=== PATIENT | male | born 1950 | race Caucasian/White ===

== ENCOUNTER 2020-10-16 16:02 | Observation (INO) ==
[2020-10-16] MEDS ORDERED: THIAMINE 200 MG/2 ML VIAL IV STA (17:00)
[2020-10-16] MEDS ORDERED: SODIUM CHLORIDE 0.9% 1,000 ML IV STA (17:00)
[2020-10-16 18:26] LABS: Basophils # 0.1 10*3/uL (0.0-0.2); Basophils % 1.5 % (0.0-0.8); Eosinophils # 0.2 10*3/uL (0.0-0.87); Eosinophils % 2.8 % (0.00-10.9); Hematocrit 49.2 VOL% (42.0-52.0); Hemoglobin 16.1 GM/DL (14.0-18.0); Immature Granulocytes % 0.4 %; Immature Granulocytes Absolute 0.03 #; Lymphocytes % 40.2 % (21.2-54.2); Mean Corpuscular HGB Conc 32.7 GM/DL (32-36); Mean Platelet Volume 9.2 FL (9.6-12.0); Monocytes % 5.7 % (1.7-12.7); Neutrophils % 49.4 % (38.7-73.9); Platelet Count 220 T/CUMM (130-400); Red Blood Count 4.73 MC/CUMM (3.8-5.5); Red Cell Distribution Width 13.6 % (9.3-17.3); White Blood Count 7.5 T/CUMM (4-12)
[2020-10-16 18:47] LABS: Lactic Acid 3.1 MMOL/L (0.4-2.0)
[2020-10-16 18:49] LABS: Alanine Aminotransferase 31 U/L (16-61); Albumin 3.1 G/DL (3.4-5.0); Alkaline Phosphatase 139 U/L (45-117); Aspartate Amino Transferase 76 U/L (0-37); Blood Urea Nitrogen 11 MG/DL (7-18); Calcium 8.5 MG/DL (8.5-10.1); Carbon Dioxide 22 MMOL/L (21-32); Estimated Glom Filtration Rate 124 ML/MIN; Glucose 113 MG/DL (74-106); Osmolality,Calculated 276.5 MOS/KG (273-304); Potassium 3.7 MMOL/L (3.5-5.1); Sodium 139 MMOL/L (136-145)
[2020-10-16 18:52] LABS: Thyroid Stimulating Hormone 1.82 uIU/ml (0.358-3.74)
[2020-10-16] MEDS ORDERED: THIAMINE INJ 100 MG, FOLIC ACID INJ 1 MG, MAGNESIUM SULF INJ 2 GM, MULTIVITAMIN INJ 10 ... IV SCH (19:00)
[2020-10-16 19:11] LABS: Barbiturates Screen,Urine Negative (Negative); Benzodiazepines Screen,Urine Negative (Negative); Cannabinoid Screen,Urine Negative (Negative); Opiate Screen,Urine Negative (Negative); Phencyclidine Screen,Urine Negative (Negative)
[2020-10-16] MEDS ORDERED: ONDANSETRON 4 MG/2 ML VIAL IV PRN (19:13)
[2020-10-16] MEDS ORDERED: GLUCAGON 1 MG VIAL IM PRN (19:13)
[2020-10-16] MEDS ORDERED: DEXTROSE 50% 25 GM/50 ML VIAL IV PRN (19:13)
[2020-10-16] MEDS ORDERED: ENOXAPARIN 40 MG/0.4 ML SYRINGE SUBCUT SCH (19:30)
[2020-10-17 02:21] LABS: Basophils # 0.1 10*3/uL (0.0-0.2); Basophils % 1.2 % (0.0-0.8); Eosinophils # 0.3 10*3/uL (0.0-0.87); Eosinophils % 3.8 % (0.00-10.9); Hematocrit 49.2 VOL% (42.0-52.0); Immature Granulocytes % 0.5 %; Immature Granulocytes Absolute 0.03 #; Lymphocytes # 3.4 10*3/uL (1.4-4.0); Lymphocytes % 52.6 % (21.2-54.2); Mean Corpuscular HGB Conc 32.5 GM/DL (32-36); Mean Corpuscular Volume 105.1 FL (87-102); Mean Platelet Volume 8.9 FL (9.6-12.0); Monocytes % 4.6 % (1.7-12.7); Neutrophils % 37.3 % (38.7-73.9); Platelet Count 239 T/CUMM (130-400); Red Blood Count 4.68 MC/CUMM (3.8-5.5); White Blood Count 6.5 T/CUMM (4-12)
[2020-10-17 02:35] LABS: Osmolality,Calculated 281.1 MOS/KG (273-304); Potassium 3.7 MMOL/L (3.5-5.1)
[2020-10-17] MEDS: DEXT 5% NACL 0.45% KCL 20 MEQ 20 MEQ/1,000 ML BAG IV SCH ×2 (02:41→12:52)
[2020-10-17 02:44] LABS: Band Neutrophils 2 % (0-10); Eosinophils 2 % (0-10); Lymphocytes 49 % (20-55); Platelet Estimate Normal; Segmented Neutrophils 39 % (50-85); Total Cells Counted 100
[2020-10-17] MEDS ORDERED: ACETAMINOPHEN 500 MG TABLET PO PRN (10:45)
[2020-10-17 11:19] VITALS: BP 146/96
== END 2020-10-17 13:21 | disposition home or self-care (01) ==
LOC: N.EDINP 16:02 → N.ED 16:02 → N.5E 10-17 00:17
PROVIDERS: ADMIT Hospitalist; ATTEND Hospitalist